=== PATIENT | male | born 1990 | race Caucasian/White ===

== ENCOUNTER 2024-09-25 18:37 | Emergency (ER) | payer SELFPAY ==
[~2024-09-25] VITALS: Ht 175.3 cm; Wt 95.3 kg
[2024-09-25 19:30] VITALS: PULSE 121; RESP 20; TEMP 98.3
[2024-09-25] MEDS: ONDANSETRON HCL INJ 2MG/ML 2ML 2 MG/ML VIAL IV STA (19:51)
[2024-09-25] MEDS: Morphine 4mg INJECTION 4 MG/ML INJ IV ONE (19:52)
[2024-09-25] MEDS ORDERED: ULTRAM 50MG50 MG PO (22:09)
[2024-09-25 22:44] VITALS: BP 110/76; PULSE 102; RESP 17; TEMP 98.5; O2SAT 100
== END 2024-09-25 22:20 | disposition home or self-care (01) ==
LOC: ER 19:34
DX: M25.512 Pain in left shoulder (principal); S43.082A Other subluxation of left shoulder joint, initial encounter; X50.9XXA Other and unspecified overexertion or strenuous movements or postures, initial encounter; Y93.01 Activity, walking, marching and hiking; Y92.89 Other specified places as the place of occurrence of the external cause
CPT/HCPCS: 73030; 99283; J2270; J2405

== ENCOUNTER 2024-12-15 15:28 | Emergency (ER) | payer SELFPAY ==
[~2024-12-15] VITALS: Ht 175.3 cm; Wt 95.3 kg
[~2024-12-15 15:28] MED LIST: ULTRAM 50MG50 MG PO
[2024-12-15 15:40] VITALS: TEMP 98
[2024-12-15] MEDS ORDERED: FENTANYL CITRATE/PF 100MCG/2 ML INJ IV STA (15:46)
[2024-12-15] MEDS: FENTANYL CITRATE/PF 100MCG/2 ML INJ IJ ONE (16:15)
[2024-12-15 16:44] VITALS: PULSE 87; RESP 18; O2SAT 99
[2024-12-15] MEDS ORDERED: TRAMADOL HCL100 M2 PO (16:46)
== END 2024-12-15 16:57 | disposition home or self-care (01) ==
LOC: ER 15:41
DX: S43.085A Other dislocation of left shoulder joint, initial encounter (principal); Y93.H9 Activity, other involving exterior property and land maintenance, building and construction
CPT/HCPCS: 23655; 73030; 99283; J3010

== ENCOUNTER 2025-02-11 17:46 | Emergency (ER) | payer SELFPAY ==
[~2025-02-11] VITALS: Ht 175.3 cm; Wt 95.3 kg
[~2025-02-11 17:46] MED LIST changes: +TRAMADOL HCL100 M2 PO
[2025-02-11 17:58] VITALS: TEMP 97.4
[2025-02-11] MEDS: SODIUM CHLORIDE 0.9% 1000ML 1,000 ML IV ONE (18:35)
[2025-02-11] MEDS: Morphine 4mg INJECTION 4 MG/ML INJ IV ONE (18:35)
[2025-02-11] MEDS: ONDANSETRON HCL INJ 2MG/ML 2ML 2 MG/ML VIAL IV STA (18:35)
[2025-02-11 19:03] LABS: BASOPHILS # (AUTO) 0.1 (0.0-0.1); BASOPHILS % 0.7 % (0.0-1.0); EOSINOPHILS # (AUTO) 0.1 (0.0-0.4); EOSINOPHILS % 1.9 % (0.0-6.0); HEMATOCRIT 45.8 % (38.2-49.6); HEMOGLOBIN 15.5 g/dL (14.0-18.0); LYMPHOCYTES # (AUTO) 1.1 (1.0-3.2); LYMPHOCYTES % 16.4 % (18.0-39.1); MEAN CORPUSCULAR HEMOGLOBIN 28.9 pg (28-32); MEAN CORPUSCULAR HGB CONC 33.8 g/dL (31-35); MEAN CORPUSCULAR VOLUME 85.3 fL (81-99); MONOCYTES # (AUTO) 0.4 (0.2-0.8); MONOCYTES % 5.2 % (4.4-11.3); NEUTROPHILS # (AUTO) 5.2 (2.1-6.9); NEUTROPHILS % 75.7 % (38.7-80.0); PLATELET COUNT 265 x10e3/uL (140-360); RED BLOOD COUNT 5.37 x10e6/uL (4.3-5.7); RED CELL DISTRIBUTION WIDTH 12.4 % (11.7-14.4); WHITE BLOOD COUNT 6.88 x10e3/uL (4.8-10.8)
[2025-02-11] MEDS ORDERED: IOPAMIDOL 370 MG/ML 100 ML INFUS..BTL INJ ONE (19:12)
[2025-02-11 19:20] LABS: INR 0.9; PROTHROMBIN TIME 12.7 seconds (11.9-14.5)
[2025-02-11 19:21] LABS: PARTIAL THROMBOPLASTIN TIME 27.7 seconds (23.8-35.5)
[2025-02-11 19:30] LABS: ALBUMIN 4.1 g/dL (3.5-5.0); ALBUMIN/GLOBULIN RATIO 1.3 (0.8-2.0); BILIRUBIN,TOTAL 0.3 mg/dL (0.2-1.2); CALCIUM 9.4 mg/dL (8.4-10.2); TOTAL PROTEIN 7.3 g/dL (6.5-8.1)
[2025-02-11 20:22] VITALS: PULSE 102; RESP 17
[2025-02-11] MEDS ORDERED: TRAMADOL HCL100 M2 PO (21:40)
[2025-02-11 21:55] VITALS: BP 129/76; PULSE 103; RESP 17; TEMP 98; O2SAT 100
== END 2025-02-11 21:46 | disposition home or self-care (01) ==
LOC: ER 18:07
DX: M25.551 Pain in right hip (principal); M25.561 Pain in right knee; M25.571 Pain in right ankle and joints of right foot; W13.2XXA Fall from, out of or through roof, initial encounter; Y92.89 Other specified places as the place of occurrence of the external cause
CPT/HCPCS: 36415; 70450; 71260; 72125; 73503; 73552; 73562; 73590; 73610; 73630; 74177; 80053; 85025; 85610; 85730; 99284; J2270; J2405; J7030; Q9967

== ENCOUNTER 2025-04-28 13:23 | Emergency (ER) | payer SELFPAY ==
[~2025-04-28] VITALS: Ht 175.3 cm; Wt 95.3 kg
[2025-04-28 13:40] VITALS: PULSE 96; RESP 16; TEMP 97.6; O2SAT 98
[2025-04-28] MEDS ORDERED: ULTRAM 50MG50 MG PO (16:12)
[2025-04-28] MEDS ORDERED: KETOROLAC TROME10 MG PO (16:12)
== END 2025-04-28 16:50 | disposition home or self-care (01) ==
LOC: ER 14:02
DX: M25.512 Pain in left shoulder (principal)